=== PATIENT | male | born 1960 | race Caucasian/White ===

== ENCOUNTER 2024-09-07 09:45 | Day surgery (SDC) | payer MEDICARE, BC, SELFPAY ==
[2024-09-07] VITALS (12 sets, daily range): BP systolic 135–159; BP diastolic 77–98; PULSE 71–86; RESP 12–18; TEMP 36.6–36.9; O2SAT 94–98; BMI 29.2
[2024-09-07] MEDS: MIDAZOLAM INJ 1 MG/ML VIAL 2 ML (ASD USE ONLY) 2 MG IVP (11:30)
[2024-09-07] MEDS: SODIUM CHLORIDE 0.9% 500 ML 500 ML 20 ML IV (11:30)
[2024-09-07] MEDS: fentaNYL CIT INJ 50 mCg/ML AMP 2ML (ASD USE ONLY) IVP (11:31)
== END 2024-09-07 12:40 | disposition home or self-care (01) ==
PROVIDERS: PCP Family Medicine; Referring Provider Specialist; Visit Provider Specialist
PROC: 0DBE8ZX Excision of Large Intestine, Via Natural or Artificial Opening Endoscopic, Diagnostic (ICD-10-PCS; CPT 45380; principal; 2024-09-07 10:30)
DX: D12.4 Benign neoplasm of descending colon (principal); D12.5 Benign neoplasm of sigmoid colon; K64.9 Unspecified hemorrhoids; K57.31 Diverticulosis of large intestine without perforation or abscess with bleeding
CPT/HCPCS: 45385; 45380; J1200; J2250; J3010; J7999